=== PATIENT | male | born 1970 | race Caucasian/White ===

== ENCOUNTER 2017-11-09 10:21 | Emergency (ER) | payer OTHER ==
--- NOTE | 2017-11-09 10:45 | ER Document Report ---
ED Medical Screen (RME) - General Chief Complaint: Flu Symptoms Stated Complaint: FLU SYMPTOMS Time Seen by Provider: 11/09/17 10:44 Mode of Arrival: Ambulatory Information source: Patient TRAVEL OUTSIDE OF THE [place] IN LAST 30 DAYS: No - HPI Patient complains to provider of: cough, CARVAJAL Onset: Other - pt thinks he got the flu from his daughter last wekk. Has been having CARVAJAL, cough, fever, and chills - Related Data Allergies/Adverse Reactions: No Known Allergies Allergy (Unverified 11/09/17 10:42) Physical Exam - Vital signs Vitals: Temp Pulse Resp BP Pulse Ox 97.7 F 78 14 124/84 98 11/09/17 10:27 11/09/17 10:27 11/09/17 10:27 11/09/17 10:27 11/09/17 10:27 Course - Vital Signs Vital signs: Temp Pulse Resp BP Pulse Ox 97.7 F 78 14 124/84 98 11/09/17 10:27 11/09/17 10:27 11/09/17 10:27 11/09/17 10:27 11/09/17 10:27
[2017-11-09 11:15] LABS: ABSOLUTE EOSINOPHILS # (AUTO) 0.2 10^3/uL (0.0-0.6); ABSOLUTE LYMPHOCYTES (AUTO) 1.7 10^3/uL (0.5-4.7); ABSOLUTE MONOCYTES (AUTO) 0.4 10^3/uL (0.1-1.4); BASOPHILS % (AUTO) 0.5 % (0-2); HEMATOCRIT 45.6 % (37.9-51.0); HEMOGLOBIN 15.8 g/dL (13.5-17.0); LYMPHOCYTES % (AUTO) 38.8 % (13-45); MEAN CORPUSCULAR HEMOGLOBIN 31.6 pg (27.0-33.4); MEAN CORPUSCULAR HGB CONC 34.6 g/dL (32.0-36.0); MEAN CORPUSCULAR VOLUME 91 fl (80-97); MONOCYTES % (AUTO) 10.2 % (3-13); PLATELET COUNT 149 10^3/uL (150-450); RED BLOOD COUNT 4.99 10^6/uL (4.35-5.55); RED CELL DISTRIBUTION WIDTH 13.5 % (11.5-14.0); SEGMENTED NEUTROPHILS % (AUTO) 46.5 % (42-78); TOTAL CELLS COUNTED % (AUTO) 100 %; WHITE BLOOD COUNT 4.4 10^3/uL (4.0-10.5)
--- NOTE | 2017-11-09 11:29 | ER Document Report ---
ED General - General Chief Complaint: Flu Symptoms Stated Complaint: FLU SYMPTOMS Time Seen by Provider: 11/09/17 10:44 Mode of Arrival: Ambulatory TRAVEL OUTSIDE OF THE [place] IN LAST 30 DAYS: No - HPI Notes: 87-year-old male presents today with complaints of dry cough, wheezing, headache , nasal congestion and body aches that has been occurring for the last 7 days. Patient states that his daughter was diagnosed with the flu a week ago, patient did not come in to get evaluated. States he has been trying [id number] Tylenol and ibuprofen for fever. States the fever broke approximately 2 days ago. Reports his worst symptom is his headache on the right side, states that similar to bacterial sinusitis he had a year ago. Denies any chest pain, shortness of breath, nausea, vomiting, diarrhea, abdominal pain, lightheadedness , dizziness, blurred vision, double vision, loss of vision, thunderclap headache. With time, states he took an Excedrin this morning and it seems to be getting a little better. Has been keeping himself hydrated. A 2 pack a day smoker for the last 22 years. Patient has a history of migraines. Any numbness or tingling down bilateral upper or lower extremities, denies any weakness in bilateral upper or lower extremities. Denies any speech changes. - Related Data Allergies/Adverse Reactions: No Known Allergies Allergy (Unverified 11/09/17 10:42) Past Medical History - General Information source: Patient - Social History Smoking Status: Current Every Day Smoker Chew tobacco use (# tins/day): No Frequency of alcohol use: Social Drug Abuse: None Family History: Reviewed & Not Pertinent Patient has suicidal ideation: No Patient has homicidal ideation: No Renal/ Medical History: Denies: Hx Peritoneal Dialysis Review of Systems - Review of Systems Constitutional: No symptoms reported EENT: See HPI Cardiovascular: No symptoms reported Respiratory: See HPI Gastrointestinal: No symptoms reported Genitourinary: No symptoms reported Male Genitourinary: No symptoms reported Musculoskeletal: No symptoms reported Skin: No symptoms reported Hematologic/Lymphatic: No symptoms reported Neurological/Psychological: No symptoms reported Physical Exam - Vital signs Vitals: Temp Pulse Resp BP Pulse Ox 97.7 F 78 14 124/84 98 11/09/17 10:27 11/09/17 10:27 11/09/17 10:27 11/09/17 10:27 11/09/17 10:27 - Notes Notes: PHYSICAL EXAMINATION: GENERAL: Well-appearing, well-nourished and in no acute distress. HEAD: Atraumatic, normocephalic. EYES: Pupils equal round and reactive to light, extraocular movements intact, sclera anicteric, conjunctiva are normal. ENT: serous effusions bilaterally, TM intact, no erythema. nares patent, oropharynx clear without exudates. Moist mucous membranes. Right frontal sinus tenderness on palpation. NECK: Normal range of motion, supple without lymphadenopathy LUNGS: Breath sounds clear to auscultation bilaterally and equal. No wheezes rales or rhonchi. HEART: Regular rate and rhythm without murmurs ABDOMEN: Soft, nontender, nondistended abdomen. No guarding, no rebound. No masses appreciated. Musculoskeletal: Normal range of motion, no pitting or edema. No cyanosis. NEUROLOGICAL: Cranial nerves grossly intact. Normal speech, normal gait. Normal sensory, motor exams. PERRLA, EOMI. Full motor and sensory function throughout. [employer] + 2 equal bilaterally in BUE. Tongue midline. No pronator drift. No ataxia. Neck with APROM. Raises eyebrows. Strength 5/5 BUE, BLE. Raises eyebrows. Speaks in full sentences. No weakness on one side. Romberg gait steady able to walk straight line. Able to recall 5 objects. PSYCH: Normal mood, normal affect. SKIN: Warm, Dry, normal turgor, no rashes or lesions noted. Course - Re-evaluation Re-evalutation: Rechecked the patient who is resting comfortably. on re-exam, patient is symptomatically improved. X-ray negative for any acute findings. The patient did have influenza, but did not seek treatment. Due to palpable right frontal sinus pain tender to palpation, nasal congestion as well as his history, patient clinically appeared to have an acute bacterial sinusitis. Discussed with patient that he needs to be hydrating with oral fluids taking over-the- counter ibuprofen and Tylenol to manage any pain. Advised patient if headache becomes worse to return to the emergency room as soon as possible. Discussed signs and symptoms of stroke such as numbness or tingling down bilateral lower extremities, speech changes, confusion disorientation, thunderclap headache etc. Patient and verbalized understanding of these instructions and agree with plan of care. Patient was discharged home. Discussed the results of the radiology as well as the diagnosis at great length. Discussed the need to return to the ER for any new or worsening sx. Patient understands to take the Rx as directed. All questions answered. Patient comfortable with the decision to go home. After performing a Medical Screening Examination, I estimate there is LOW risk for ACUTE CORONARY SYNDROME, PULMONARY EMBOLI, RESPIRATORY FAILURE, SEPSIS OR MENINGITIS, thus I consider the discharge disposition reasonable. I have reevaluated this patient multiple times and no significant life threatening changes are noted. The patient and I have discussed the diagnosis and risks, and we agree with discharging home with close follow-up. We also discussed returning to the Emergency Department immediately if new or worsening symptoms occur. We have discussed the symptoms which are most concerning (e.g., changing or worsening pain, trouble swallowing or breathing, neck stiffness, fever) that necessitate immediate return. 11/09/17 11:51 11/09/17 12:29 - Vital Signs Vital signs: Temp Pulse Resp BP Pulse Ox 97.7 F 78 14 124/84 98 11/09/17 10:27 11/09/17 10:27 11/09/17 10:27 11/09/17 10:27 11/09/17 10:27 - Laboratory Result Diagrams: 11/09/17 11:00 11/09/17 11:00 Laboratory results interpreted by me: 11/09/17 11/09/17 11:00 11:00 Plt Count 149 L Chloride 108 H Carbon Dioxide 21 L AST 69 H ALT 110 H Discharge - Discharge Clinical Impression: Acute bacterial sinusitis Condition: Good Disposition: HOME, SELF-CARE Additional Instructions: Sinusitis You have sinusitis, an infection of the sinus cavities of the face. The sinuses are air-filled chambers which open into the inside of the nose. Bacteria and pus fill a sinus, causing pain, drainage, and fever. Sinusitis is treated with antibiotics. Often, expectorants (to thin the sinus mucous) or decongestants (to reduce swelling) are prescribed as well. Healing requires seven to 10 days. Avoid chemical fumes, pollens, dusts, and smoke (especially cigarette smoke ). Keep the air humidified in your bedroom and work area and take plenty of liquids by mouth. This condition can be serious if the infection spreads. If your symptoms worsen, or if you develop severe headache, high fever, stiff neck, or a rash, you must call the doctor or return for re-evaluation. Up with your PCP within 3 days. Return to the emergency room if symptoms become worse. Take antibiotic as directed with food. Take prednisone twice a day as directed with food. Increase oral hydration. Return immediately for any new or worsening symptoms. Follow up with primary care provider, call tomorrow to make followup appointment. Prescriptions: Amoxicillin/Potassium Clav [Augmentin 875-125 Tablet] 1 each PO BID #20 tablet Prednisone 20 mg PO BID #10 tablet
[2017-11-09 11:32] LABS: ALANINE AMINOTRANSFERASE 110 U/L (21-72); ALBUMIN 4.4 g/dL (3.5-5.0); ALKALINE PHOSPHATASE 72 U/L (38-126); ANION GAP 13 (5-19); ASPARTATE AMINO TRANSFERASE 69 U/L (17-59); BILIRUBIN,DIRECT 0.3 mg/dL (0.0-0.4); BILIRUBIN,TOTAL 0.3 mg/dL (0.2-1.3); BLOOD UREA NITROGEN 13 mg/dL (7-20); CALCIUM 9.5 mg/dL (8.4-10.2); CARBON DIOXIDE 21 mmol/L (22-30); CHLORIDE 108 mmol/L (98-107); GLUCOSE 101 mg/dL (75-110); SODIUM 141.8 mmol/L (137-145); TOTAL PROTEIN 7.2 g/dL (6.3-8.2)
[2017-11-09] MEDS ORDERED: PREDNISONE 20 MG TABLET PO ONE (11:44)
--- NOTE | 2017-11-09 12:01 | RADIOLOGY REPORT (SQ) ---
EXAM DESCRIPTION: CHEST PA/LAT COMPLETED DATE/TIME: 11/09/2017 11:44 am REASON FOR STUDY: cough COMPARISON: None. EXAM PARAMETERS: NUMBER OF VIEWS: two views TECHNIQUE: Digital Frontal and Lateral radiographic views of the chest acquired. RADIATION DOSE: NA LIMITATIONS: none FINDINGS: LUNGS AND PLEURA: No opacities, masses or pneumothorax. No pleural effusion. MEDIASTINUM AND HILAR STRUCTURES: No masses or contour abnormalities. HEART AND VASCULAR STRUCTURES: Heart normal size. No evidence for failure. BONES: No acute findings. HARDWARE: None in the chest. OTHER: No other significant finding. IMPRESSION: NO SIGNIFICANT RADIOGRAPHIC FINDING IN THE CHEST. TECHNICAL DOCUMENTATION: JOB ID: [id number] [employer]- All Rights Reserved
[2017-11-09] MEDS ORDERED: KETOROLAC TROMETHAMINE 60 MG/2 ML SDV IM ONE (12:29)
[2017-11-09 12:50] VITALS: BP 118/86
== END 2017-11-09 12:48 | disposition home or self-care (01) ==
LOC: ER 10:21
DX: J01.90 Acute sinusitis, unspecified (principal); B96.89 Other specified bacterial agents as the cause of diseases classified elsewhere; R05 Cough; R06.2 Wheezing; R51 Headache; R09.81 Nasal congestion; F17.200 Nicotine dependence, unspecified, uncomplicated
CPT/HCPCS: 99284; 36415; 85025; 80053; 71046; J7512